=== PATIENT | female | born 1975 ===

== ENCOUNTER 2021-08-17 12:56 | Emergency (ER) | payer BC ==
[2021-08-17] MEDS ORDERED: Lidocaine 1% (PF) 30 ML VIAL ONE (13:19)
[2021-08-17] MEDS ORDERED: Bacitracin 1 PK ONE (13:33)
== END 2021-08-17 13:55 | disposition home or self-care (01) ==
LOC: NAV ERS 12:56
DX: S61.212A Laceration without foreign body of right middle finger without damage to nail, initial encounter (principal); I10 Essential (primary) hypertension; E78.5 Hyperlipidemia, unspecified; E78.00 Pure hypercholesterolemia, unspecified; W26.8XXA Contact with other sharp object(s), not elsewhere classified, initial encounter
CPT/HCPCS: 12001; J2001